=== PATIENT | male | born 1960 | race Caucasian/White ===

== ENCOUNTER 2018-05-05 18:25 | Emergency (ER) | payer BC, SELFPAY ==
[2018-05-05 18:30] VITALS: BP 121/66; PULSE 87; RESP 14; TEMP 36.4; O2SAT 100
[2018-05-05] MEDS: TET,DIPH,PERTUSS(ACELL),VAC/PF 0.5 ML SYRINGE IM (18:58)
[2018-05-05 19:45] VITALS: BP 131/74; PULSE 78; RESP 12; O2SAT 97
--- NOTE | 2018-05-06 00:46 | ED_ITS ---
HPI - Skin/Abscess/Foreign Bdy General Chief complaint: Skin/Abscess/Foreign Body Stated complaint: laceration to right hand Time Seen by Provider: 05/05/18 18:56 Source: patient and family Mode of arrival: ambulatory Limitations: no limitations History of Present Illness HPI narrative: 58-year-old male, former smoker presents with his in the chief complaint accidental laceration to the webspace between 2nd and 3rd fingers on his right hand. His tetanus need to be updated. He was taking aluminum foil off the spool and cut his finger on the serrated edge of the aluminum foil dispenser. He says it bled profusely at the time of injury and he was seen by paramedics on [facility] before being instructed to come here for likely suture repair. He denies any numbness, tingling or weakness. MD complaint: laceration Onset (ago): hour(s) Tetanus up to date: no Location: R hand Severity: moderate Quality: aching Pain Consistency: constant Relieving factors: none Exacerbating factors: none Context: none Associated symptoms: denies other symptoms Treatments prior to arrival: bandages Related Data Home Medications Medication Instructions Recorded Confirmed atorvastatin 10 mg PO DAILY 05/05/18 05/05/18 doxycycline monohydrate 100 mg PO DAILY 05/05/18 05/05/18 gabapentin 300 mg PO BID 05/05/18 05/05/18 glipizide 20 mg PO DAILY 05/05/18 05/05/18 meloxicam 15 mg PO DAILY 05/05/18 05/05/18 metformin 1,000 mg PO BID 05/05/18 05/05/18 olmesartan-hydrochlorothiazide 0.5 tab PO DAILY 05/05/18 05/05/18 omeprazole 20 mg PO DAILY 05/05/18 05/05/18 sertraline 100 mg PO DAILY 05/05/18 05/05/18 Allergies Allergy/AdvReac Type Severity Reaction Status Date / Time No Known Drug Allergies Allergy Verified 05/05/18 18:33 Review of Systems Review of Systems All systems reviewed & are unremarkable except as noted in HPI and below Constitutional Denies chills, Denies fever(s), Denies lethargy and Denies weakness Eyes Denies change in vision, Denies eye discharge, Denies irritation and Denies loss of vision ENT Ears, Nose, Mouth, and Throat: Denies change in voice, Denies neck pain and Denies sore throat Cardiovascular Denies chest pain, Denies irregular heart rhythm, Denies lightheadedness, Denies palpitations, Denies dyspnea, Denies dyspnea on exertion and Denies orthopnea Respiratory Denies cough, Denies dyspnea, Denies dyspnea on exertion and Denies wheezing Gastrointestinal Gastrointestinal: Denies abdominal pain, Denies change in bowel habits, Denies diarrhea, Denies nausea and Denies vomiting Genitourinary Denies hematuria, Denies flank pain, Denies urinary incontinence and Denies urinary urgency Musculoskeletal Reports limited range of motion and Denies neck pain Integumentary/Breasts Denies pruritus, Denies erythema, Denies rash and Reports wounds Neurologic Denies confusion, Denies loss of vision and Denies weakness Psychiatric Denies anxiety, Denies confusion, Denies depression, Denies homicidal ideation and Denies suicidal ideation Endocrine Denies palpitations Hematologic/Lymphatic Denies easy bruising Allergic/Immunologic Denies wheezing [facility] Social History Smoking Status: Former smoker Exam Narrative Exam Narrative: 58-year-old male, very pleasant, alert and oriented, mild distress Initial Vital Signs Initial Vital Signs: Vital Signs Temperature 97.6 F 05/05/18 18:30 Pulse Rate 87 05/05/18 18:30 Respiratory Rate 14 05/05/18 18:30 Blood Pressure 121/66 05/05/18 18:30 Pulse Oximetry 100 05/05/18 18:30 Const General: cooperative, well developed and in distress Nutritional Appearance: well nourished Orientation: alert, awake, oriented x3 and not confused Eyes General: appearance normal, both eyes and all related structures Eyelids: eyelids normal Conjunctivae: conjunctivae normal Sclera: sclerae normal Pupils: PERRL EOM: EOM intact bilaterally Chest Chest: normal inspection of the chest Resp Effort & Inspection: normal respiratory effort, able to speak in complete sentences, no respiratory distress and no use of accessory muscles Auscultation: clear to auscultation bilaterally, no rales, no rhonchi and no wheezes GI Inspection: non-distended Palpation: soft, no hepatosplenomegaly, No guarding, No pulsatile mass and No tender Auscultation: normal bowel sounds Skin Trauma: laceration (Deep irregular laceration in the webspace between 2nd and 3rd fingers right hand) Procedures Laceration Repair Laceration 1: Site: hand Side (If applicable): right Size (cm): 3 Description: irregular and clean Depth: simple, single layer Local Anesthetic: lidocaine 1% and with bicarb Amount of anesthesia used (mL): 5 Pre-repair: wound explored and deep structures intact Skin layer closed with: nylon Size (cm): 5-0 Number of sutures: 7 Technique: simple, interrupted Course Orders Ordered: Discontinued Medications Diphtheria/Tetanus/Acell Pertussis (Adacel) 0.5 ml IM .ONCE ONE Stop: 05/05/18 18:38 Last Admin: 05/05/18 18:58 Dose: 0.5 ml Vital Signs - 8 hr 05/05/18 18:30 05/05/18 19:45 Temperature 97.6 F Pulse Rate 87 78 Respiratory Rate 14 12 Blood Pressure 121/66 131/74 Pulse Oximetry 100 97 Discharge Plan Departure Patient Disposition: Home Clinical Impression: Laceration Discharge Date/Time: 05/05/18 19:46 Interventions: ED Discharge Assessment Last Done: 05/05/18 19:45 Instructions: DI for Laceration Repair Activity Restrictions/Additional Instructions: Please keep the wound clean and dry to the best of your ability. Please monitor for signs of infection such as redness to the skin or increasing pain. Have the sutures removed by your doctor in about 7 days. If you are unable to get into your doctor, we would be happy to remove the sutures in that same timeframe. Prescriptions: No Action metformin 500 mg tablet 1,000 mg PO BID RF: 0 atorvastatin 10 mg tablet 10 mg PO DAILY RF: 0 meloxicam 15 mg tablet 15 mg PO DAILY RF: 0 sertraline 100 mg tablet 100 mg PO DAILY RF: 0 doxycycline monohydrate 100 mg capsule 100 mg PO DAILY RF: 0 gabapentin 300 mg capsule 300 mg PO BID RF: 0 omeprazole 20 mg capsule,delayed release(DR/EC) 20 mg PO DAILY RF: 0 glipizide 5 mg tablet 20 mg PO DAILY RF: 0 olmesartan-hydrochlorothiazide 20-12.5 mg tablet 0.5 tab PO DAILY RF: 0
== END 2018-05-05 19:46 | disposition home or self-care (01) ==
PROVIDERS: Emergency Provider Emergency Medicine
DX: S61.411A Laceration without foreign body of right hand, initial encounter (principal); W26.8XXA Contact with other sharp object(s), not elsewhere classified, initial encounter
CPT/HCPCS: 12002; 90471; 99282; 99283; 90715

== ENCOUNTER 2018-08-21 22:04 | Emergency (ER) | payer BC, SELFPAY ==
[2018-08-21 22:35] VITALS: BP 120/70; PULSE 80; RESP 16; TEMP 36.8; O2SAT 97; BMI 25.0
--- NOTE | 2018-08-21 23:56 | DI.CT.S_ITS ---
PROCEDURE: CT HEAD/BRAIN WO CON INDICATIONS: severe headache TECHNIQUE: Noncontrast 4.5 mm thick angled axial sections acquired from the foramen magnum to the vertex, with coronal and sagittal reformats. For radiation dose reduction, the following was used: automated exposure control, adjustment of mA and/or kV according to patient size. COMPARISON: None. FINDINGS: Image quality: Excellent. CSF spaces: Basal cisterns are patent. No extra-axial fluid collections. Ventricles are normal in size and shape. Brain: No midline shift. No intracranial masses or hemorrhage. [place]-white matter interface is normal. Skull and face: Calvarium and visualized facial bones are intact, without suspicious lesions. Sinuses: Sinuses demonstrate mild to moderate ethmoid mucosal thickening. IMPRESSION: 1. No acute intracranial process. The above findings are concordant with preliminary report. Dictated by: Hanh Bruno M.D. on 08/22/2018 at 10:04 Approved by: Hanh Bruno M.D. on 08/22/2018 at 10:04
[2018-08-22 00:42] VITALS: BP 122/72; PULSE 76; RESP 18; O2SAT 98
[2018-08-22 00:42] LABS: Add Manual Diff / Slide Review NO; Basophils Absolute Auto 0 /uL (0-100); Basophils Percent Auto 0.6 % (0-2); Eosinophils Absolute Auto 200 /uL (0-450); Eosinophils Percent Auto 2.5 % (2-4); Hematocrit 38.4 % (41-53); Hemoglobin 13.4 g/dL (13.5-17.5); Lymphocytes Absolute Auto 2000 /uL (1100-4500); Lymphocytes Percent Auto 29.8 % (25-40); Mean Corpuscular Hemoglobin 31.1 PG (26-34); Mean Corpuscular Volume 88.9 fL (80-100); Monocytes Absolute Auto 600 /uL (0-900); Monocytes Percent Auto 8.4 % (3-14); Neutrophils Absolute Auto 4000 /uL (1500-7000); Neutrophils Percent Auto 58.7 % (50-75); Platelet Count 204 X10^3/uL (150-400); Red Blood Cell Count 4.32 X10^6/uL (4.5-5.9); Red Cell Distribution Width 12.8 % (11.6-14.8); White Blood Cell Count 6.8 X10^3/uL (4.5-11.0)
[2018-08-22 00:45] LABS: Acetaminophen < 10 ug/mL (10-30); Alanine Aminotransferase 36 IU/L (21-72); Albumin 4.3 g/dL (3.5-5.0); Albumin Globulin Ratio 1.8 (1.0-2.8); Alkaline Phosphatase 56 U/L (38-126); Aspartate Aminotransferase 25 IU/L (17-59); BUN Creatinine Ratio 27.5 (6-22); Bilirubin Total 0.3 mg/dL (0.2-1.3); Blood Urea Nitrogen 22 mg/dL (9-20); Calcium 9.5 mg/dL (8.4-10.2); Carbon Dioxide 24 mmol/L (22-32); Chloride 100 mmol/L (98-107); Estimated Glomerular Filt Rate > 60.0 mL/min (>60); Ethanol (ETOH) < 10 mg/dL; Globulin 2.4 g/dL (1.7-4.1); Glucose 145 mg/dL (80-110); HEMOLYSIS < 15 (0-50); Salicylate < 1.0 mg/dL (<20); Sodium 137 mmol/L (137-145); Total Protein 6.7 g/dL (6.3-8.2)
[2018-08-22 00:48] LABS: Lipase 187 U/L (23-300)
--- NOTE | 2018-08-22 01:03 | ED_ITS ---
HPI - Neuro Symptoms/Deficit General Chief Complaint: Neuro Symptoms/Deficit Stated Complaint: EXTREM ENERGY SCREAMING LOTS NOT SURE ALLERGIC RILEY Time Seen by Provider: 08/21/18 23:20 Source: patient Mode of arrival: ambulatory Limitations: no limitations History of Present Illness HPI Narrative: Patient is a a 58-year-old male who presents with behavior changes. He has a history of chronic Lyme disease and PTSD with outbursts. states that he has outbursts where he screams and runs around stating that he has pressure in his brain. Today apparently was very intense the worst she has ever seen it he got a little violent and she was scared to be alone with him. However he did calm down they were able to come here by POV from [facility] on the [place]. He takes clonazepam at night which he is now taken and is now calm and cooperative and answering questions. He states that he still has headache. He is able to follow commands. History is mostly from the . On Anticoagulants: No Related Data Home Medications Medication Instructions Recorded Confirmed atorvastatin 10 mg PO DAILY 05/05/18 05/05/18 doxycycline monohydrate 100 mg PO DAILY 05/05/18 05/05/18 gabapentin 300 mg PO BID 05/05/18 05/05/18 glipizide 20 mg PO DAILY 05/05/18 05/05/18 meloxicam 15 mg PO DAILY 05/05/18 05/05/18 metformin 1,000 mg PO BID 05/05/18 05/05/18 olmesartan-hydrochlorothiazide 0.5 tab PO DAILY 05/05/18 05/05/18 omeprazole 20 mg PO DAILY 05/05/18 05/05/18 sertraline 100 mg PO DAILY 05/05/18 05/05/18 Allergies Allergy/AdvReac Type Severity Reaction Status Date / Time No Known Drug Allergies Allergy Verified 05/05/18 18:33 Review of Systems Review of Systems ROS Unobtainable: All systems reviewed & are unremarkable except as noted in HPI and below Constitutional Denies chills, Denies fever(s), Reports headache(s), Denies lethargy and Denies weakness Eyes Denies change in vision, Denies eye discharge, Denies irritation and Denies loss of vision ENT Ears, Nose, Mouth, and Throat: Denies change in voice, Reports headache(s), Denies neck pain and Denies sore throat Cardiovascular Denies chest pain, Denies irregular heart rhythm, Denies lightheadedness, Denies palpitations, Denies dyspnea, Denies dyspnea on exertion and Denies orthopnea Respiratory Denies cough, Denies dyspnea, Denies dyspnea on exertion and Denies wheezing Gastrointestinal Gastrointestinal: Denies abdominal pain, Denies change in bowel habits, Denies diarrhea, Denies nausea and Denies vomiting Genitourinary Denies hematuria, Denies flank pain, Denies urinary incontinence and Denies uri nary urgency Musculoskeletal Denies neck pain Integumentary/Breasts Denies pruritus, Denies erythema, Denies rash and Denies wounds Neurologic Reports behavioral changes, Reports headache(s), Denies focal weakness, Denies loss of vision and Denies weakness Psychiatric Reports behavioral changes Endocrine Denies palpitations Allergic/Immunologic Denies wheezing [facility] Medical History Lyme disease (Acute) PTSD (post-traumatic stress disorder) (Acute) Social History Smoking Status: Former smoker Social History Smoking Status: Former smoker Exam Initial Vital Signs Initial Vital Signs: Vital Signs Temperature 98.2 F 08/21/18 22:35 Pulse Rate 80 08/21/18 22:35 Respiratory Rate 16 08/21/18 22:35 Blood Pressure 120/70 08/21/18 22:35 Pulse Oximetry 97 08/21/18 22:35 GENERAL: Calm, sleepy but able to follow commands and arousable and in no acute distress. HEENT: Head atraumatic,EOMI, pupils reactive, face symmetric, no meningeal signs CARDIOVASCULAR: Regular rate and rhythm without murmurs, rubs or gallops. RESPIRATORY: Breath sounds equal bilaterally, no wheezes rales or rhonchi. ABDOMEN: Soft, nontender. Normoactive bowel sounds all 4 quadrants. No guarding or rebound. EXTREMITIES: Normal range of motion, no clubbing or edema. Neurovascularly intact NEUROLOGICAL: Alert and oriented x4.Normal gait and speech. Cranial nerves II through XII grossly intact. usability architect strength equal bilaterally able to push and pull equally. Good strength in lower extremities as well. SKIN: Warm, dry, no laceration, no petechiae, no rashes or lesions. Course Orders Ordered: ED Orders 08/21/18 23:56 CT head/brain wo con Stat Acetaminophen Stat Blood Culture Stat Complete Blood Count AUTO DIFF Stat Comprehensive Metabolic Panel Stat Ethanol (ETOH) Stat Lactate (Lactic Acid) Stat Salicylate Stat 08/21/18 23:57 Lipase Stat 08/22/18 00:55 Urinalysis and Microscopic Stat Urine Drug Screen, Rapid Stat Vital Signs - 8 hr 08/21/18 22:35 08/22/18 00:42 08/22/18 02:14 Temperature 98.2 F Pulse Rate 80 76 76 Respiratory Rate 16 18 18 Blood Pressure 120/70 Blood Pressure [Right Arm] 122/72 126/70 Pulse Oximetry 97 98 98 MDM - Neuro Symptoms/Deficit Lab Data Attestation: I reviewed the patient's lab results. Result diagrams: 08/22/18 00:20 08/22/18 00:20 Lab Results 08/22/18 08/22/18 08/22/18 Range/Units 00:20 00:20 00:20 WBC 6.8 (4.5-11.0) X10^3/uL RBC 4.32 L (4.5-5.9) X10^6/uL Hgb 13.4 L (13.5-17.5) g/dL Hct 38.4 L (41-53) % MCV 88.9 (80-100) fL MCH 31.1 (26-34) PG MCHC 35.0 (30-36) % RDW 12.8 (11.6-14.8) % Plt Count 204 (150-400) X10^3/uL Neut % (Auto) 58.7 (50-75) % Lymph % (Auto) 29.8 (25-40) % [place] % (Auto) 8.4 (3-14) % Eos % (Auto) 2.5 (2-4) % Baso % (Auto) 0.6 (0-2) % Neut # (Auto) 4000 (6733-0979) /uL Lymph # (Auto) 2000 (0558-9817) /uL [place] # (Auto) 600 (0-900) /uL Eos # (Auto) 200 (0-450) /uL Baso # (Auto) 0 (0-100) /uL Sodium 137 (137-145) mmol/L Potassium 4.0 (3.4-5.1) mmol/L Chloride 100 (98-107) mmol/L Carbon Dioxide 24 (22-32) mmol/L BUN 22 H (9-20) mg/dL Creatinine 0.80 (0.66-1.25) mg/dL Estimated GFR > 60.0 (>60) mL/min BUN/Creatinine Ratio 27.5 H (6-22) Glucose 145 H (80-110) mg/dL Lactate 2.0 (0.7-2.1) mmol/L Calcium 9.5 (8.4-10.2) mg/dL Total Bilirubin 0.3 (0.2-1.3) mg/dL AST 25 (17-59) IU/L ALT 36 (21-72) IU/L Alkaline Phosphatase 56 (38-126) U/L Total Protein 6.7 (6.3-8.2) g/dL Albumin 4.3 (3.5-5.0) g/dL Globulin 2.4 (1.7-4.1) g/dL Albumin/Globulin Ratio 1.8 (1.0-2.8) Lipase (23-300) U/L Urine Color Urine Appearance Urine pH (4.5-8.0) Ur Specific [place] (1.000-1.035) Urine Protein (Negative) Urine Glucose (UA) (Negative) g/dL Urine Ketones (NEGATIVE) Urine Occult Blood (Negative) Urine Nitrate (Negative) Urine Bilirubin (NEGATIVE) Urine Urobilinogen (0.2) E.U./dL Ur Leukocyte Esterase (NEGATIVE) Urine RBC (0-5/HPF) Urine WBC (0-5/HPF) Urine Bacteria (None) Ur Culture Indicated? Micro UA Comment Salicylates < 1.0 (<20) mg/dL Urine Opiates Screen (Negative) Ur Oxycodone Screen (Negative) Urine Methadone Screen (Negative) Acetaminophen < 10 L (10-30) ug/mL Ur Barbiturates Screen (Negative) U Tricyclic Antidepress (Negative) Ur Phencyclidine Scrn (Negative) Ur Amphetamines Screen (Negative) U Methamphetamines Scrn (Negative) Ur MDMA Scrn (Ecstasy) (Negative) U Benzodiazepines Scrn (Negative) Urine Cocaine Screen (Negative) U Marijuana (THC) Screen (Negative) Ethyl Alcohol < 10 mg/dL 08/22/18 08/22/18 08/22/18 Range/Units 00:20 00:55 00:55 WBC (4.5-11.0) X10^3/uL RBC (4.5-5.9) X10^6/uL Hgb (13.5-17.5) g/dL Hct (41-53) % MCV (80-100) fL MCH (26-34) PG MCHC (30-36) % RDW (11.6-14.8) % Plt Count (150-400) X10^3/uL Neut % (Auto) (50-75) % Lymph % (Auto) (25-40) % [place] % (Auto) (3-14) % Eos % (Auto) (2-4) % Baso % (Auto) (0-2) % Neut # (Auto) (1478-9125) /uL Lymph # (Auto) (1645-6171) /uL [place] # (Auto) (0-900) /uL Eos # (Auto) (0-450) /uL Baso # (Auto) (0-100) /uL Sodium (137-145) mmol/L Potassium (3.4-5.1) mmol/L Chloride (98-107) mmol/L Carbon Dioxide (22-32) mmol/L BUN (9-20) mg/dL Creatinine (0.66-1.25) mg/dL Estimated GFR (>60) mL/min BUN/Creatinine Ratio (6-22) Glucose (80-110) mg/dL Lactate (0.7-2.1) mmol/L Calcium (8.4-10.2) mg/dL Total Bilirubin (0.2-1.3) mg/dL AST (17-59) IU/L ALT (21-72) IU/L Alkaline Phosphatase (38-126) U/L Total Protein (6.3-8.2) g/dL Albumin (3.5-5.0) g/dL Globulin (1.7-4.1) g/dL Albumin/Globulin Ratio (1.0-2.8) Lipase 187 (23-300) U/L Urine Color Yellow Urine Appearance Clear Urine pH 5.0 (4.5-8.0) Ur Specific [place] 1.010 (1.000-1.035) Urine Protein Negative (Negative) Urine Glucose (UA) Negative (Negative) g/dL Urine Ketones Negative (NEGATIVE) Urine Occult Blood Negative (Negative) Urine Nitrate Negative (Negative) Urine Bilirubin Negative (NEGATIVE) Urine Urobilinogen 0.2 (0.2) E.U./dL Ur Leukocyte Esterase Negative (NEGATIVE) Urine RBC None seen (0-5/HPF) Urine WBC None seen (0-5/HPF) Urine Bacteria None seen (None) Ur Culture Indicated? Cult not indicated Micro UA Comment Microscopic normal Salicylates (<20) mg/dL Urine Opiates Screen Negative (Negative) Ur Oxycodone Screen Negative (Negative) Urine Methadone Screen Negative (Negative) Acetaminophen (10-30) ug/mL Ur Barbiturates Screen Negative (Negative) U Tricyclic Antidepress Negative (Negative) Ur Phencyclidine Scrn Negative (Negative) Ur Amphetamines Screen Negative (Negative) U Methamphetamines Scrn Negative (Negative) Ur MDMA Scrn (Ecstasy) Negative (Negative) U Benzodiazepines Scrn Negative (Negative) Urine Cocaine Screen Negative (Negative) U Marijuana (THC) Screen Positive H (Negative) Ethyl Alcohol mg/dL Imaging Data CT scan - head: Radiologist's impression: recruitment intern report no acute intracranial disease. Findings consistent with ethmoid sinusitis chronic or acute on chronic MDM Narrative Medical decision making narrative: The patient is calm and has been sleeping. No aggressive outbursts. The feels comfortable going home. states that he does have outbursts like this frequently however today was worse than normal. Discharge Plan Departure Patient Disposition: Home Clinical Impression: Behavior concern in adult Discharge Date/Time: 08/22/18 05:00 Interventions: ED Discharge Assessment Last Done: 08/22/18 05:46 Instructions: Post-traumatic Stress Disorder Activity Restrictions/Additional Instructions: *You have been diagnosed with behavior changes *What to do: At this time no source of infection or head abnormality found *Continue to take medications as directed *Follow up with your primary care provider in 2-3 days *Return to ER if you should have any new, worsening or concerning symptoms Prescriptions: No Action metformin 500 mg tablet 1,000 mg PO BID RF: 0 atorvastatin 10 mg tablet 10 mg PO DAILY RF: 0 meloxicam 15 mg tablet 15 mg PO DAILY RF: 0 sertraline 100 mg tablet 100 mg PO DAILY RF: 0 doxycycline monohydrate 100 mg capsule 100 mg PO DAILY RF: 0 gabapentin 300 mg capsule 300 mg PO BID RF: 0 omeprazole 20 mg capsule,delayed release(DR/EC) 20 mg PO DAILY RF: 0 glipizide 5 mg tablet 20 mg PO DAILY RF: 0 olmesartan-hydrochlorothiazide 20-12.5 mg tablet 0.5 tab PO DAILY RF: 0
[2018-08-22 01:19] LABS: Urine Amphetamines Negative (Negative); Urine Cocaine Negative (Negative); Urine Morphine/Opi cutoff 2000 Negative (Negative); Urine Tetrahydrocannabinol Positive (Negative)
[2018-08-22 01:20] LABS: Urine Barbiturates Negative (Negative); Urine Benzodiazepines Negative (Negative); Urine MDMA Negative (Negative); Urine Methadone Negative (Negative); Urine Methamphetamines Negative (Negative); Urine Oxycodone Negative (Negative); Urine Phencyclidine Negative (Negative); Urine Tricyclic Antidepressant Negative (Negative)
[2018-08-22 01:44] LABS: Appearance Urine UA CLEAR; Bacteria Urine None Seen; Bilirubin Urine UA NEGATIVE (NEGATIVE); Color Urine UA YELLOW; Glucose Urine UA NEGATIVE (Negative); Ketones Urine UA NEGATIVE (NEGATIVE); Leukocyte Esterase Urine UA NEGATIVE (NEGATIVE); Nitrite Urine UA NEGATIVE (Negative); Occult Blood Urine UA NEGATIVE (Negative); Protein Urine UA NEGATIVE (Negative); RBC Urine None Seen (0-5/HPF); Urobilinogen Urine UA 0.2 E.U./dL (0.2); WBC Urine None Seen (0-5/HPF)
[2018-08-22 01:55] LABS: Culture Indicated Urine Cult Not Indicated; Urine Comments Microscopic Normal
[2018-08-22 02:14] VITALS: BP 126/70; PULSE 76; RESP 18; O2SAT 98
--- NOTE | 2018-08-22 02:20 | PC.NURSE ---
He is up for discharge,he and his will be allowed to sleep in rm 13 until am petra run back to [facility].
== END 2018-08-22 05:00 | disposition home or self-care (01) ==
PROVIDERS: Emergency Provider Emergency Medicine
DX: F69 Unspecified disorder of adult personality and behavior (principal); R51 Headache
CPT/HCPCS: 36591; 70450; 80053; 80305; 80320; 80329; 81001; 83605; 83690; 85025; 87040; 99283; 99284; 99291; G0480

== ENCOUNTER → 2021-03-12 09:48 | Outpatient (CLI) | payer OTHER, SELFPAY ==
[2021-03-12 18:58] LABS: Add Manual Diff / Slide Review NO; Basophils Absolute Auto 0 /uL (0-100); Basophils Percent Auto 0.9 % (0-2); Eosinophils Absolute Auto 100 /uL (0-450); Eosinophils Percent Auto 1.8 % (2-4); Hematocrit 39.2 % (41-53); Hemoglobin 13.9 g/dL (13.5-17.5); Lymphocytes Absolute Auto 1100 /uL (1100-4500); Lymphocytes Percent Auto 23.5 % (25-40); Mean Corpuscular HGB Conc 35.5 % (30-36); Mean Corpuscular Hemoglobin 31.8 PG (26-34); Mean Corpuscular Volume 89.6 fL (80-100); Monocytes Absolute Auto 400 /uL (0-900); Monocytes Percent Auto 9.3 % (3-14); Neutrophils Absolute Auto 3100 /uL (1500-7000); Neutrophils Percent Auto 64.5 % (50-75); Platelet Count 195 X10^3/uL (150-400); Red Blood Cell Count 4.38 X10^6/uL (4.5-5.9); Red Cell Distribution Width 13.3 % (11.6-14.8); White Blood Cell Count 4.7 X10^3/uL (4.5-11.0)
[2021-03-12 19:06] LABS: Alanine Aminotransferase 33 IU/L (<50); Albumin 4.7 g/dL (3.5-5.0); Albumin Globulin Ratio 1.7 (1.0-2.8); Alkaline Phosphatase 70 U/L (38-126); Aspartate Aminotransferase 28 IU/L (17-59); BUN Creatinine Ratio 24.6 (6-22); Bilirubin Total 0.4 mg/dL (0.2-1.3); Blood Urea Nitrogen 15 mg/dL (9-20); Calcium 9.6 mg/dL (8.4-10.2); Carbon Dioxide 31 mmol/L (22-32); Chloride 97 mmol/L (98-107); Cholesterol 127 mg/dL (140-199); Estimated Glomerular Filt Rate > 60.0 mL/min (>60); Globulin 2.8 g/dL (1.7-4.1); Glucose 120 mg/dL (80-110); HDL Cholesterol 62 mg/dL (40-60); HEMOLYSIS < 15 (0-50); LDL Cholesterol Calculated 45 mg/dL (<100); Potassium 4.5 mmol/L (3.4-5.1); Sodium 137 mmol/L (137-145); Total Protein 7.5 g/dL (6.3-8.2); Triglycerides 99 mg/dL (35-150)
[2021-03-12 19:10] LABS: Hemoglobin A1C% w Est Avg Glu 6.4 % (4.0-6.0)
== END ==
PROVIDERS: PCP Family Medicine; Visit Provider Family Medicine
DX: E78.5 Hyperlipidemia, unspecified (principal); F41.9 Anxiety disorder, unspecified; I10 Essential (primary) hypertension; Z86.39 Personal history of other endocrine, nutritional and metabolic disease
CPT/HCPCS: 80053; 80061; 83036; 85025

== ENCOUNTER → 2021-10-17 11:18 | Outpatient (CLI) | payer OTHER, SELFPAY ==
[2021-10-17 18:54] LABS: HEMOLYSIS < 15 (0-50); Iron 80 ug/dL (49-181)
[2021-10-17 18:57] LABS: Add Manual Diff / Slide Review NO; Basophils Absolute Auto 0 /uL (0-100); Basophils Percent Auto 0.8 % (0-2); Eosinophils Absolute Auto 100 /uL (0-450); Eosinophils Percent Auto 2.6 % (2-4); Hematocrit 37.5 % (41-53); Hemoglobin 13.2 g/dL (13.5-17.5); Lymphocytes Absolute Auto 900 /uL (1100-4500); Lymphocytes Percent Auto 19.4 % (25-40); Mean Corpuscular HGB Conc 35.2 % (30-36); Mean Corpuscular Hemoglobin 31.5 PG (26-34); Mean Corpuscular Volume 89.6 fL (80-100); Monocytes Absolute Auto 500 /uL (0-900); Monocytes Percent Auto 9.9 % (3-14); Neutrophils Absolute Auto 3200 /uL (1500-7000); Neutrophils Percent Auto 67.3 % (50-75); Platelet Count 194 X10^3/uL (150-400); Red Blood Cell Count 4.18 X10^6/uL (4.5-5.9); Red Cell Distribution Width 12.9 % (11.6-14.8); White Blood Cell Count 4.7 X10^3/uL (4.5-11.0)
[2021-10-17 19:05] LABS: Percent Iron Saturation 27 % (20-50); Total Iron Binding Capacity 294 ug/dL (261-462); Transferrin 224 mg/dL (206-381)
[2021-10-17 19:08] LABS: Alanine Aminotransferase 33 IU/L (<50); Albumin 4.7 g/dL (3.5-5.0); Albumin Globulin Ratio 1.9 (1.0-2.8); Alkaline Phosphatase 69 U/L (38-126); Aspartate Aminotransferase 32 IU/L (17-59); BUN Creatinine Ratio 32.9 (6-22); Bilirubin Total 0.6 mg/dL (0.2-1.3); Blood Urea Nitrogen 25 mg/dL (9-20); Calcium 8.9 mg/dL (8.4-10.2); Carbon Dioxide 30 mmol/L (22-32); Chloride 101 mmol/L (98-107); Cholesterol 121 mg/dL (140-199); Estimated Glomerular Filt Rate > 60 mL/min (>60); Globulin 2.5 g/dL (1.7-4.1); Glucose 139 mg/dL (80-110); HDL Cholesterol 49 mg/dL (40-60); HEMOLYSIS < 15 (0-50); LDL Cholesterol Calculated 57 mg/dL (<100); Potassium 4.6 mmol/L (3.4-5.1); Sodium 137 mmol/L (137-145); Total Protein 7.2 g/dL (6.3-8.2); Triglycerides 74 mg/dL (35-150)
[2021-10-17 19:16] LABS: Creatinine Urine Random 32.1 mg/dL; Hemoglobin A1C% w Est Avg Glu 7.6 % (4.0-6.0)
[2021-10-17 19:21] LABS: Microalbumin Urine Random < 0.6 mg/dL (0-1.6)
[2021-10-17 19:49] LABS: Vitamin B12 257 pg/mL (239-931)
== END ==
PROVIDERS: PCP Family Medicine; Visit Provider Family Medicine
DX: D64.9 Anemia, unspecified (principal); E11.9 Type 2 diabetes mellitus without complications; E78.2 Mixed hyperlipidemia; F33.41 Major depressive disorder, recurrent, in partial remission; F41.1 Generalized anxiety disorder; I10 Essential (primary) hypertension; N52.9 Male erectile dysfunction, unspecified
CPT/HCPCS: 80053; 80061; 82043; 82570; 82607; 83036; 83540; 83550; 85025

== ENCOUNTER → 2022-05-16 09:06 | Outpatient (CLI) | payer OTHER, SELFPAY ==
[2022-05-16 20:06] LABS: Add Manual Diff / Slide Review NO; Basophils Absolute Auto 0 /uL (0-100); Basophils Percent Auto 0.8 % (0-2); Eosinophils Absolute Auto 100 /uL (0-450); Hematocrit 40.4 % (41-53); Hemoglobin 13.7 g/dL (13.5-17.5); Lymphocytes Absolute Auto 1000 /uL (1100-4500); Lymphocytes Percent Auto 22.2 % (25-40); Mean Corpuscular Hemoglobin 30.6 PG (26-34); Mean Corpuscular Volume 90.1 fL (80-100); Monocytes Absolute Auto 600 /uL (0-900); Monocytes Percent Auto 12.4 % (3-14); Neutrophils Absolute Auto 2800 /uL (1500-7000); Neutrophils Percent Auto 61.6 % (50-75); Platelet Count 190 X10^3/uL (150-400); Red Blood Cell Count 4.48 X10^6/uL (4.5-5.9); Red Cell Distribution Width 13.6 % (11.6-14.8); White Blood Cell Count 4.6 X10^3/uL (4.5-11.0)
[2022-05-16 20:15] LABS: Hemoglobin A1C% w Est Avg Glu 7.7 % (4.0-6.0)
[2022-05-16 20:52] LABS: HEMOLYSIS < 15 (0-50)
[2022-05-16 21:00] LABS: Creatinine Urine Random 31.5 mg/dL
[2022-05-16 21:02] LABS: BUN Creatinine Ratio 28.8 (6-22); Blood Urea Nitrogen 19 mg/dL (9-20); Carbon Dioxide 26 mmol/L (22-32); Chloride 101 mmol/L (98-107); Cholesterol 129 mg/dL (140-199); Estimated Glomerular Filt Rate > 60 mL/min (>60); Glucose 146 mg/dL (80-110); HDL Cholesterol 57 mg/dL (40-60); LDL Cholesterol Calculated 56 mg/dL (<100); Potassium 4.2 mmol/L (3.4-5.1); Sodium 137 mmol/L (137-145); Triglycerides 79 mg/dL (35-150)
[2022-05-16 21:12] LABS: Microalbumin Urine Random < 0.6 mg/dL (0-1.6)
[2022-05-16 22:40] LABS: Prostate Specific Antigen Scrn 1.19 ng/mL (0.1-4.0)
[2022-05-16 22:58] LABS: Vitamin B12 950 pg/mL (239-931)
== END ==
PROVIDERS: PCP Family Medicine; Visit Provider Family Medicine
DX: E11.9 Type 2 diabetes mellitus without complications (principal); E78.2 Mixed hyperlipidemia; I10 Essential (primary) hypertension; Z12.5 Encounter for screening for malignant neoplasm of prostate
CPT/HCPCS: 80048; 80061; 82043; 82570; 82607; 83036; 85025; G0103

== ENCOUNTER → 2022-08-21 09:10 | Outpatient (CLI) | payer OTHER, SELFPAY ==
[2022-08-21 19:37] LABS: Add Manual Diff / Slide Review NO; Basophils Absolute Auto 0 /uL (0-100); Basophils Percent Auto 0.7 % (0-2); Eosinophils Absolute Auto 100 /uL (0-450); Eosinophils Percent Auto 2.4 % (2-4); Hematocrit 38.4 % (41-53); Hemoglobin 13.5 g/dL (13.5-17.5); Lymphocytes Absolute Auto 1000 /uL (1100-4500); Lymphocytes Percent Auto 25.8 % (25-40); Mean Corpuscular HGB Conc 35.1 % (30-36); Mean Corpuscular Hemoglobin 31.2 PG (26-34); Mean Corpuscular Volume 88.9 fL (80-100); Monocytes Absolute Auto 500 /uL (0-900); Monocytes Percent Auto 11.5 % (3-14); Neutrophils Absolute Auto 2400 /uL (1500-7000); Neutrophils Percent Auto 59.6 % (50-75); Platelet Count 189 X10^3/uL (150-400); Red Blood Cell Count 4.32 X10^6/uL (4.5-5.9); Red Cell Distribution Width 13.4 % (11.6-14.8)
[2022-08-21 19:51] LABS: Blood Urea Nitrogen 18 mg/dL (9-20); Carbon Dioxide 27 mmol/L (22-32); Chloride 99 mmol/L (98-107); Estimated Glomerular Filt Rate > 60 mL/min (>60); Glucose 157 mg/dL (80-110); HEMOLYSIS < 15 (0-50); Potassium 4.3 mmol/L (3.4-5.1); Sodium 134 mmol/L (137-145)
[2022-08-21 20:52] LABS: Creatinine Urine Random 40.5 mg/dL
[2022-08-21 21:31] LABS: Microalbumin Urine Random < 0.6 mg/dL (0-1.6)
[2022-08-22 21:12] LABS: Labcorp Hemoglobin (Hb) A1c 7.3 % (4.8-5.6)
== END ==
PROVIDERS: PCP Family Medicine; Visit Provider Family Medicine
DX: D64.9 Anemia, unspecified (principal); E11.9 Type 2 diabetes mellitus without complications; I10 Essential (primary) hypertension
CPT/HCPCS: 80048; 82043; 82570; 83036; 85025

== ENCOUNTER → 2022-09-02 09:46 | Outpatient (CLI) | payer OTHER, SELFPAY ==
[2022-09-04 16:20] LABS: Fecal Immunochemical Test Negative (Negative)
== END ==
PROVIDERS: PCP Family Medicine; Visit Provider Family Medicine
DX: D64.9 Anemia, unspecified (principal); E78.2 Mixed hyperlipidemia; I10 Essential (primary) hypertension
CPT/HCPCS: 82274

== ENCOUNTER → 2022-12-02 10:49 | Outpatient (CLI) | payer OTHER, SELFPAY ==
[2022-12-02 19:43] LABS: Alanine Aminotransferase 34 IU/L (<50); Albumin 4.8 g/dL (3.5-5.0); Albumin Globulin Ratio 1.5 (1.0-2.8); Alkaline Phosphatase 62 U/L (38-126); Aspartate Aminotransferase 48 IU/L (17-59); Bilirubin Total 0.7 mg/dL (0.2-1.3); Bilirubin Unconjugated 0.5 mg/dL (0.0-1.1); Globulin 3.1 g/dL (1.7-4.1); HEMOLYSIS < 15 (0-50); Total Protein 7.9 g/dL (6.3-8.2)
[2022-12-02 20:06] LABS: Add Manual Diff / Slide Review NO; Basophils Absolute Auto 0 /uL (0-100); Basophils Percent Auto 0.5 % (0-2); Eosinophils Absolute Auto 100 /uL (0-450); Eosinophils Percent Auto 1.8 % (2-4); Hematocrit 40.4 % (41-53); Hemoglobin 14.3 g/dL (13.5-17.5); Lymphocytes Absolute Auto 900 /uL (1100-4500); Lymphocytes Percent Auto 21.4 % (25-40); Mean Corpuscular HGB Conc 35.4 % (30-36); Mean Corpuscular Hemoglobin 31.5 PG (26-34); Mean Corpuscular Volume 88.9 fL (80-100); Monocytes Absolute Auto 400 /uL (0-900); Monocytes Percent Auto 8.9 % (3-14); Neutrophils Absolute Auto 2900 /uL (1500-7000); Neutrophils Percent Auto 67.4 % (50-75); Platelet Count 200 X10^3/uL (150-400); Red Blood Cell Count 4.55 X10^6/uL (4.5-5.9); White Blood Cell Count 4.4 X10^3/uL (4.5-11.0)
[2022-12-02 20:09] LABS: TSH w/ Reflex to FT4 3.02 uIU/mL (0.47-4.68)
[2022-12-02 20:18] LABS: Reticulocyte Count, Percent 0.9 % (0.9-2.6)
[2022-12-02 20:49] LABS: Folate 14.8 ng/mL (2.76-20.0)
[2022-12-04 00:45] LABS: Labcorp Hemoglobin (Hb) A1c 5.4 % (4.8-5.6)
== END ==
PROVIDERS: PCP Family Medicine; Visit Provider Family Medicine
DX: D64.9 Anemia, unspecified (principal); E78.2 Mixed hyperlipidemia; I10 Essential (primary) hypertension
CPT/HCPCS: 80076; 82746; 83036; 84443; 85025; 85045

== ENCOUNTER → 2023-05-26 10:57 | Outpatient (CLI) | payer MEDICARE, SELFPAY ==
[2023-05-26 19:14] LABS: Hemoglobin 14.7 g/dL (13.5-17.5); Mean Corpuscular HGB Conc 34.9 % (30-36); Mean Corpuscular Hemoglobin 31.3 PG (26-34); Mean Corpuscular Volume 89.8 fL (80-100); Platelet Count 220 X10^3/uL (150-400); Red Blood Cell Count 4.68 X10^6/uL (4.5-5.9); Red Cell Distribution Width 13.4 % (11.6-14.8); White Blood Cell Count 5.4 X10^3/uL (4.5-11.0)
[2023-05-26 19:40] LABS: Neutrophils Absolute Manual 4212 /uL (3000-5900); Total Cells Counted 100
[2023-05-26 19:41] LABS: RBC Morphology Normal Morphology
[2023-05-26 20:00] LABS: BUN Creatinine Ratio 17.6 (6-22); Blood Urea Nitrogen 12 mg/dL (9-20); Calcium 10.3 mg/dL (8.4-10.2); Carbon Dioxide 28 mmol/L (22-32); Chloride 92 mmol/L (98-107); Cholesterol 131 mg/dL (140-199); Estimated Glomerular Filt Rate > 60 mL/min (>60); Glucose 224 mg/dL (80-110); HDL Cholesterol 60 mg/dL (40-60); HEMOLYSIS < 15 (0-50); LDL Cholesterol Calculated 55 mg/dL (<100); Potassium 4.2 mmol/L (3.4-5.1); Sodium 133 mmol/L (137-145); Triglycerides 82 mg/dL (35-150)
[2023-05-26 20:02] LABS: Creatinine Urine Random 74.2 mg/dL
[2023-05-26 20:25] LABS: Microalbumin Urine Random < 0.6 mg/dL (0-1.6)
[2023-05-26 20:34] LABS: Hemoglobin A1C% w Est Avg Glu 7.4 % (4.0-6.0)
== END ==
PROVIDERS: PCP Family Medicine; Visit Provider Family Medicine
DX: E11.9 Type 2 diabetes mellitus without complications (principal); E78.2 Mixed hyperlipidemia; I10 Essential (primary) hypertension; G62.9 Polyneuropathy, unspecified
CPT/HCPCS: 80048; 80061; 82043; 82570; 83036; 85025

== ENCOUNTER → 2024-02-24 09:31 | Outpatient (CLI) | payer MEDICARE, SELFPAY ==
[2024-02-24 19:02] LABS: Add Manual Diff / Slide Review NO; Basophils Absolute Auto 0 /uL (0-100); Basophils Percent Auto 0.6 % (0-2); Eosinophils Absolute Auto 100 /uL (0-450); Eosinophils Percent Auto 2.5 % (2-4); Hematocrit 37.5 % (41-53); Hemoglobin 13.4 g/dL (13.5-17.5); Lymphocytes Absolute Auto 1000 /uL (1100-4500); Lymphocytes Percent Auto 18.1 % (25-40); Mean Corpuscular HGB Conc 35.7 % (30-36); Mean Corpuscular Volume 92.3 fL (80-100); Monocytes Absolute Auto 500 /uL (0-900); Monocytes Percent Auto 9.4 % (3-14); Neutrophils Absolute Auto 3700 /uL (1500-7000); Neutrophils Percent Auto 69.4 % (50-75); Platelet Count 186 X10^3/uL (150-400); Red Blood Cell Count 4.06 X10^6/uL (4.5-5.9); Red Cell Distribution Width 13.2 % (11.6-14.8); White Blood Cell Count 5.4 X10^3/uL (4.5-11.0)
[2024-02-24 19:03] LABS: BUN Creatinine Ratio 21.9 (6-22); Blood Urea Nitrogen 14 mg/dL (9-20); Calcium 8.9 mg/dL (8.4-10.2); Carbon Dioxide 26 mmol/L (22-32); Chloride 98 mmol/L (98-107); Estimated Glomerular Filt Rate > 60 mL/min (>60); Glucose 209 mg/dL (80-110); HEMOLYSIS < 15 (0-50); Potassium 4.3 mmol/L (3.4-5.1); Sodium 132 mmol/L (137-145)
[2024-02-24 19:13] LABS: Hemoglobin A1C% w Est Avg Glu 7.6 % (4.0-6.0)
[2024-02-24 19:31] LABS: Creatinine Urine Random 47.11 mg/dL
[2024-02-24 19:42] LABS: Microalbumin Urine Random < 0.6 mg/dL (0-1.6)
== END ==
PROVIDERS: PCP Family Medicine; Visit Provider Family Medicine
DX: E83.52 Hypercalcemia (principal); I10 Essential (primary) hypertension; D64.9 Anemia, unspecified; E11.9 Type 2 diabetes mellitus without complications; E78.2 Mixed hyperlipidemia
CPT/HCPCS: 80048; 82043; 82570; 83036; 85025

== ENCOUNTER → 2024-04-05 11:28 | Outpatient (CLI) | payer MEDICARE, SELFPAY ==
[2024-04-05 19:15] LABS: Reticulocyte Count, Percent 1.1 % (0.9-2.6)
[2024-04-05 19:18] LABS: Add Manual Diff / Slide Review NO; Basophils Absolute Auto 0 /uL (0-100); Basophils Percent Auto 0.5 % (0-2); Eosinophils Absolute Auto 100 /uL (0-450); Hematocrit 39.6 % (41-53); Hemoglobin 13.9 g/dL (13.5-17.5); Lymphocytes Absolute Auto 1300 /uL (1100-4500); Lymphocytes Percent Auto 24.4 % (25-40); Mean Corpuscular HGB Conc 35.1 % (30-36); Mean Corpuscular Hemoglobin 32.1 PG (26-34); Mean Corpuscular Volume 91.5 fL (80-100); Monocytes Absolute Auto 400 /uL (0-900); Neutrophils Absolute Auto 3600 /uL (1500-7000); Neutrophils Percent Auto 65.1 % (50-75); Platelet Count 195 X10^3/uL (150-400); Red Blood Cell Count 4.32 X10^6/uL (4.5-5.9); White Blood Cell Count 5.5 X10^3/uL (4.5-11.0)
[2024-04-05 19:20] LABS: HEMOLYSIS < 15 (0-50)
[2024-04-05 19:25] LABS: Iron 148 ug/dL (49-181)
[2024-04-05 19:41] LABS: Percent Iron Saturation 54 % (20-50); Total Iron Binding Capacity 275 ug/dL (261-462); Transferrin 242 mg/dL (206-381)
[2024-04-05 20:24] LABS: Vitamin B12 555 pg/mL (239-931)
== END ==
PROVIDERS: PCP Family Medicine; Visit Provider Family Medicine
DX: D64.9 Anemia, unspecified (principal)
CPT/HCPCS: 82607; 83540; 83550; 85025; 85045

== ENCOUNTER → 2024-07-14 10:31 | Outpatient (CLI) | payer MEDICARE, SELFPAY ==
[2024-07-14 20:23] LABS: Basophils Absolute Auto 0 /uL (0-100); Basophils Percent Auto 0.8 % (0-2); Eosinophils Absolute Auto 100 /uL (0-450); Eosinophils Percent Auto 3.2 % (2-4); Hematocrit 36.6 % (41-53); Hemoglobin 13.2 g/dL (13.5-17.5); Lymphocytes Absolute Auto 1200 /uL (1100-4500); Lymphocytes Percent Auto 30.1 % (25-40); Mean Corpuscular Hemoglobin 33.2 PG (26-34); Mean Corpuscular Volume 92.3 fL (80-100); Monocytes Absolute Auto 400 /uL (0-900); Monocytes Percent Auto 10.9 % (3-14); Neutrophils Absolute Auto 2100 /uL (1500-7000); Platelet Count 188 X10^3/uL (150-400); Red Blood Cell Count 3.97 X10^6/uL (4.5-5.9); Red Cell Distribution Width 13.3 % (11.6-14.8); White Blood Cell Count 3.9 X10^3/uL (4.5-11.0)
[2024-07-14 20:31] LABS: Hemoglobin A1C% w Est Avg Glu 7.9 % (4.0-6.0)
[2024-07-14 20:35] LABS: BUN Creatinine Ratio 22.4 (6-22); Blood Urea Nitrogen 15 mg/dL (9-20); Calcium 8.9 mg/dL (8.4-10.2); Carbon Dioxide 26 mmol/L (22-32); Chloride 100 mmol/L (98-107); Cholesterol 106 mg/dL (140-199); Estimated Glomerular Filt Rate > 60 mL/min (>60); Glucose 239 mg/dL (80-110); HDL Cholesterol 43 mg/dL (40-60); HEMOLYSIS < 15 (0-50); LDL Cholesterol Calculated 52 mg/dL (<100); Potassium 4.5 mmol/L (3.4-5.1); Sodium 133 mmol/L (137-145); Triglycerides 56 mg/dL (35-150)
[2024-07-14 20:44] LABS: Add Manual Diff / Slide Review SLIDE REVIEW
[2024-07-14 20:45] LABS: RBC Morphology Normal Morphology
[2024-07-14 21:01] LABS: Creatinine Urine Random 45.57 mg/dL
[2024-07-14 21:07] LABS: Prostate Specific Antigen Scrn 0.615 ng/mL (0.1-4.0)
[2024-07-14 21:09] LABS: Microalbumin Urine Random < 0.6 mg/dL (0-1.6)
== END ==
PROVIDERS: PCP Family Medicine; Visit Provider Family Medicine
DX: D64.9 Anemia, unspecified (principal); N40.1 Benign prostatic hyperplasia with lower urinary tract symptoms; N13.8 Other obstructive and reflux uropathy; E11.9 Type 2 diabetes mellitus without complications; F41.1 Generalized anxiety disorder; E83.52 Hypercalcemia; E78.2 Mixed hyperlipidemia; I10 Essential (primary) hypertension; Z79.899 Other long term (current) drug therapy; Z12.5 Encounter for screening for malignant neoplasm of prostate
CPT/HCPCS: 80048; 80061; 82043; 82570; 83036; 85025; G0103

== ENCOUNTER 2025-03-28 08:41 | Day surgery (SDC) | payer MEDICARE, SELFPAY ==
--- NOTE | 2025-03-28 06:26 | P.HP_ITS ---
History of Present Illness History of Present Illness Date Patient Seen: 03/28/25 Chief complaint: Screening Colonoscopy Narrative: Patient presents for screening colonoscopy today. [facility] Medical History (Updated 03/28/25 @ 06:26 by Ciaran Decker MD) Anxiety attack Ricks's palsy Heel pain Ankle pain Diabetes mellitus Lyme disease PTSD (post-traumatic stress disorder) Surgical History (Updated 10/26/20 @ 19:58 by Lisa Ray) Anesthesia Family History (Updated 10/26/20 @ 19:58 by Lisa Ray) Father History of heart attack Mother History of heart attack Meds Home Medications and Allergies Home Medications ?Medication ?Instructions ?Recorded ?Confirmed ?Type gabapentin 300 mg capsule 600 mg (2 x 300 mg) PO DAILY #180 06/24/24 03/10/25 Rx caps sertraline 100 mg tablet 100 mg PO DAILY depression a nd 06/24/24 03/10/25 Rx anxiety #90 tabs meloxicam 15 mg tablet 15 mg PO DAILY #90 tabs 05/0 07/0603/10/25 Rx omeprazole 20 mg capsule,delayed 20 mg PO DAILY #90 ca ps 11/08/24 03/10/25 Rx release olmesartan 20 0.5 tab PO DAILY #45 tabs 03/10/25 Rx mg-hydrochlorothiazide 12.5 mg tablet sildenafil 100 mg tablet 100 mg PO DAILY PRN sexual 0 01/19/25 03/10/25 Rx activity #30 tabs atorvastatin 10 mg tablet 10 mg PO ONCE PM #90 tabs 03/10/25 Rx pioglitazone 30 mg tablet (Actos) 30 mg PO DAILY #90 t abs 03/10/25 03/10/25 Rx clonazepam 0.5 mg tablet 0.5 mg PO DAILY Anxiety #9 0 tabs 03/11/25 Rx sodium,potassium,mag sulfates 17.5 See Rx Instructions PO .COMPLEX 03/17/25 Rx gram-3.13 gram-1.6 gram oral soln #354 mL (Suprep Bowel Prep Kit) Allergies Allergy/AdvReac Type Severity Reaction Status Date / Time metformin AdvReac Intermediate Nausea Verified 05/22/22 09:40 Exam Narrative Exam Narrative: Const General: healthy appearing, comfortable and no acute distress Orientation: alert and oriented x3 HENMT Ears: hearing grossly normal bilaterally Eyes Visual [place]: normal visual [place]nderson by confrontation Conjunctivae: conjunctivae normal Sclera: sclerae normal EOM: EOM intact bilaterally Resp Effort & Inspection: normal respiratory effort and able to speak in complete sentences Cardio Rate: regular rate GI Palpation: soft (NT) Extrem General: no pedal edema and no calf tenderness Assessment & Plan Assessment and plan (1) Encounter for screening colonoscopy: Status: Acute Plan Plan colonoscopy, possible biopsy. The risks, benefits and options regarding the procedure were explained to the patient in detail. Risk discussion included but not limited to: bleeding, perforation, unable to reach cecum, missed lesion. The patient was encouraged to ask questions and they were answered to their satisfaction. The patient understands and is agreeable to proceed. Time-Based Coding :: [TOTAL MINUTES] spent with patient and on the chart (including review of chart, obtaining history, exam, reviewing outside data, placing orders, documenting exam and treatment plan, and counseling patient) on [DATE]. [employer] Manager Document charge(s): Yes Charge Codes Inpatient/observation care including admit and discharge same day: [id number]
[2025-03-28 09:06] VITALS: BP 169/96; PULSE 73; RESP 16; TEMP 36.8; O2SAT 98
[2025-03-28] MEDS: LACTATED RINGERS 1,000 ML 42 ML IV (10:03)
--- NOTE | 2025-03-28 10:03 | P.OP.COLON_ITS ---
Operative Date/Time/Diagnoses Date of procedure: 03/28/25 Time of procedure: 10:27 Pre-op diagnosis: Screening colonoscopy Post-op diagnosis: same Procedure & Clinicians Study performed: Colonoscopy Same procedure(s) as scheduled: Yes Indications: 64yo M, screening colonoscopy Surgeon: Ciaran Decker Anesthesia Type: MAC +/- Procedure Notes SCOAP/Timeout: Performed Procedure in detail: Colonoscopy Patient placed in left lateral recumbent position. Time out was performed. Procedural sedation was administered by anesthesia. Examination began with a thorough inspection of the perianal area. There was no evidence of fissures, fistulae, external hemorrhoids or cutaneous malignancy. The colonoscope was then placed into the rectum and the lumen was insufflated with carbon dioxide. The scope was carefully advanced forward. Ultimately the cecum was intubated and confirmed by identification of the ileocecal valve, the appendiceal orifice and the confluence of the taenia. The scope was then slowly withdrawn examining the colon thoroughly in all directions. In the rectum, retroflexion of the scope was performed for inspection of the distal rectum and anal canal. ?Significant colonoscopy findings: ?1. Quality of the preparation-good, [place] 2-3, improved with irrigation/suction ?2. Scattered sigmoid diverticulae 3. No polyps, stricture, mass 4. Small internal hemorrhoids 5. otherwise normal screening colonoscopy Scope withdrawal time: 8 minutes Findings: divertiulosis and internal hemorrhoids Specimen(s): none sent Estimated Blood Loss: 5 Complications: none Impression: Normal screening colonoscopy Sigmoid diverticulosis Small internal hemorrhoids Post-procedure Plan for aftercare: PACU then home Follow up: as needed Disposition: PACU
[2025-03-28 10:26] VITALS: BP 116/61; PULSE 67; RESP 17; TEMP 36.3; O2SAT 97
[2025-03-28 10:30] VITALS: BP 115/58; PULSE 68; RESP 16; O2SAT 96
[2025-03-28 10:35] VITALS: BP 115/63; PULSE 67; RESP 17; TEMP 36.9; O2SAT 98
[2025-03-28 10:45] VITALS: BP 160/79; PULSE 70; RESP 19; TEMP 36.3; O2SAT 96
== END 2025-03-28 11:00 | disposition home or self-care (01) ==
PROVIDERS: PCP Family Medicine; Referring Provider Surgery; Visit Provider Surgery
PROC: 0DJD8ZZ Inspection of Lower Intestinal Tract, Via Natural or Artificial Opening Endoscopic (ICD-10-PCS; CPT 45378; principal; 2025-03-28 10:00)
DX: Z12.11 Encounter for screening for malignant neoplasm of colon (principal); K57.30 Diverticulosis of large intestine without perforation or abscess without bleeding; K64.8 Other hemorrhoids; I10 Essential (primary) hypertension; E78.5 Hyperlipidemia, unspecified; K21.9 Gastro-esophageal reflux disease without esophagitis; F43.10 Post-traumatic stress disorder, unspecified; E11.9 Type 2 diabetes mellitus without complications; Z79.84 Long term (current) use of oral hypoglycemic drugs
CPT/HCPCS: G0121; J2704; J7120